=== PATIENT | male | born 1965 | race Caucasian/White ===

== ENCOUNTER 2016-06-23 17:36 | Emergency (ER) | payer BC ==
[~2016-06-23] VITALS: Ht 175.3 cm; Wt 128.1 kg
[~2016-06-23 17:36] MED LIST: AMOX500T PO; CELE10TA PO; IBUP800T23 PO; METF1000 PO; ULTR50TA5 PO
[2016-06-23 17:50] VITALS: BP 158/92; PULSE 86; RESP 18; TEMP 99.1; O2SAT 99
[2016-06-23] MEDS ORDERED: MULT1TAB85 PO (18:03)
[2016-06-23] MEDS ORDERED: ASPI81CH37 CHEW (18:03)
[2016-06-23] MEDS ORDERED: BUSP30TA PO (18:03)
[2016-06-23] MEDS ORDERED: SIMV80TA PO (18:03)
[2016-06-23] MEDS ORDERED: CLAR10CA3 PO (18:04)
--- NOTE | 2016-06-23 18:10 | PD ---
HPI Chief Complaint: Oral / Dental Pain or Problem Time Seen by Provider: 18:09 Travel History International Travel<30 days: No Contact w/Intl Traveler<30days: No Traveled to known affect area: No History of Present Illness HPI 50-year-old male with a history of diabetes presents to the emergency department for evaluation of dental pain. Patient states that he has multiple bad upper teeth that he is scheduled to have removed next week. States that he bit down on something yesterday and broke off another piece of one of his right upper teeth. States that since then he has had worsening pain and swelling on the right side of his face. States that the pain radiates to his right ear and right eye. He has a headache as well. He denies any fever, chills, nausea, vomiting, lightheadedness, dizziness, difficulty swallowing. States he has been taking ibuprofen for pain. States that he did take a tramadol left over from his visit in May earlier today with minimal improvement of symptoms. No other complaints. PFSH Past Medical History Depression: Yes High Cholesterol: Yes Diabetes: Yes (Type 2) Patient Takes Glucophage: Yes Tetanus Vaccination: > 5 Years Influenza Vaccination: No Past Surgical History Appendectomy: Yes Tonsillectomy: Yes Social History Alcohol Use: No Tobacco Use: Yes (1 PPD) Substance Use: No Allergies-Medications (Allergen,Severity, Reaction): Coded Allergies: Tylenol #3 (Verified Adverse Reaction, Severe, "Makes me crazy", 06/23/16) Vicodin (Verified Adverse Reaction, Severe, "Makes me feel crazy", 06/23/16 ) Reported Meds & Prescriptions Reported Meds & Active Scripts Active Tramadol (Tramadol HCl) 50 Mg Tab 50 Mg PO Q6H PRN Ibuprofen 800 Mg Tab 800 Mg PO Q8H PRN 10 Days Clindamycin (Clindamycin HCl) 150 Mg Cap 300 Mg PO Q6H 10 Days Reported Claritin (Loratadine) 10 Mg Cap 10 Mg PO DAILY Multivitamin Men (Multiple Vitamins W/ Minerals) 1 Tab Tab 1 Tab PO DAILY Aspirin Low Dose (Aspirin) 81 Mg Chew 81 Mg CHEW DAILY Simvastatin 80 Mg Tab 80 Mg PO DAILY Buspirone (Buspirone HCl) 30 Mg Tab 40 Mg PO TID Celexa (Citalopram Hydrobromide) 10 Mg Tab 10 Mg PO BID Metformin (Metformin HCl) 1,000 Mg Tab 1,000 Mg PO BIDPC With meals Review of Systems Except as stated in HPI: all other systems reviewed are Neg Physical Exam Narrative GENERAL: Well-nourished and well-developed pleasant patient in no acute distress who is nontoxic appearing. SKIN: Warm and dry without any obvious rashes or lesions. HEAD: Normocephalic and atraumatic. Mild swelling of right maxillary region with tenderness to palpation. EYES: No injection, drainage, or hyphema noted. PERRLA. EOMI. ENT: No nasal drainage noted. Oropharynx is clear and the TMs are normal with good landmarks. DENTAL: Poor dentition throughout. Multiple dental caries and upper teeth. There is swelling and erythema of the right upper gingiva. No discharge or drainage. NECK: Supple and the trachea is midline. No lymphadenopathy is noted throughout the cervical chains. CARDIOVASCULAR: Regular rate and rhythm. RESPIRATORY: Breath sounds are equal bilaterally with no accessory muscle use, wheezing, rhonchi, or crackles. NEUROLOGICAL: Awake, alert, and oriented. Normal speech and gait. Cranial nerves are grossly intact. Data Data Last Documented VS Vital Signs Date Time Temp Pulse Resp B/P Pulse Ox O2 Delivery O2 Flow Rate FiO2 06/23/16 17:50 99.1 86 18 158/92 99 Orders Ketorolac Inj (Toradol Inj) (06/23/16 18:15) Blood Glucose (06/23/16 18:09) MDM Medical Decision Making Medical Screen Exam Complete: Yes Emergency Medical Condition: Yes Differential Diagnosis Dental infection versus dental abscess versus dental caries Narrative Course 50-year-old male presents to the emergency department for evaluation of right upper dental pain and facial swelling. Patient is afebrile, vital signs are stable. On physical examination he has multiple dental caries and some mild right-sided facial swelling. He is scheduled to see the dentist tomorrow for preop visit. Patient is given Toradol 60 mg IM. He'll be discharged with clindamycin, tramadol and ibuprofen. He is instructed to follow-up with his dentist as scheduled. Patient verbalizes understanding and agreement with treatment plan. Diagnosis Primary Impression: Dental abscess Referrals: Dentist Patient Instructions: Dental Abscess (ED), General Instructions Additional Instructions: Take medications as prescribed with food and a full glass of water. Do not take Tramadol with alcohol or while driving. Follow-up with your Dentist. Return to the ED for any acute worsening of symptoms. Med/Other Pt SpecificInfo: Prescription(s) given Scripts Tramadol 50 Mg Tab50 Mg PO Q6H PRN (PAIN GREATER THAN 6) #20 TAB Ref 0 Prov:Javy George MD 06/23/16 Ibuprofen 800 Mg [id number] Mg PO Q8H PRN (PAIN SCALE 1 TO 10) 10 Days Ref 0 Prov:Javy George MD 06/23/16 Clindamycin 150 Mg [id number] Mg PO Q6H 10 Days Ref 0 Prov:Javy George MD 06/23/16 Disposition: 01 DISCHARGE HOME Condition: Stable Katy Barrera Jun 23, 2016 18:10
[2016-06-23] MEDS ORDERED: KETOROLAC TROMETHAMINE 60 MG/2 ML (IM) VIAL IM ONE (18:15)
[2016-06-23] MEDS ORDERED: TRAM50TA PO (18:21)
[2016-06-23] MEDS ORDERED: CLIN1CAP5 PO (18:21)
[2016-06-23] MEDS ORDERED: IBUP800T23 PO (18:21)
== END 2016-06-23 18:30 | disposition home or self-care (01) ==
LOC: PHEFT 17:36
DX: K04.7 Periapical abscess without sinus (principal); E78.00 Pure hypercholesterolemia, unspecified; E11.9 Type 2 diabetes mellitus without complications; F17.210 Nicotine dependence, cigarettes, uncomplicated; R51 Headache
CPT/HCPCS: 96372; 99282; J1885

== ENCOUNTER 2016-09-26 16:40 | Emergency (ER) | payer BC ==
[~2016-09-26] VITALS: Ht 175.3 cm; Wt 123.0 kg
[~2016-09-26 16:40] MED LIST changes: -AMOX500T PO; +ASPI81CH37 CHEW; +BUSP30TA PO; +CLAR10CA3 PO; +CLIN1CAP5 PO; +MULT1TAB85 PO; +SIMV80TA PO; +TRAM50TA PO; -ULTR50TA5 PO
[2016-09-26 16:43] VITALS: BP 126/76; PULSE 74; RESP 16; TEMP 98.4; O2SAT 96
[2016-09-26] MEDS ORDERED: INSULIN HUMAN REGULAR 1,000 UNITS/10 ML VIAL SQ ONE (17:15)
[2016-09-26] MEDS ORDERED: SODIUM CHLOR 0.9% 1000 ML INJ 1,000 ML IV ONE ×2 (17:15)
[2016-09-26] MEDS ORDERED: CIPR-9 PO (17:29)
[2016-09-26 17:33] LABS: AUTOMATED NEUTROPHIL # 5.1 TH/MM3 (1.8-7.7); BASOPHIL # 0.1 TH/MM3 (0-0.2); BASOPHIL % 0.7 % (0.0-2.0); EOSINOPHIL # 0.2 TH/MM3 (0-0.4); EOSINOPHIL % 1.9 % (0.0-4.0); HEMATOCRIT 41.7 % (39.0-51.0); HEMO FLAGS DIFF FINAL; LYMPH % 27.2 % (9.0-44.0); LYMPHOCYTE # 2.2 TH/MM3 (1.0-4.8); MEAN CELL VOLUME 91.6 FL (80.0-100.0); MEAN CORPUSCULAR HEMOGLOBIN 31.3 PG (27.0-34.0); MEAN CORPUSCULAR HGB CONC 34.1 % (32.0-36.0); MONO % 4.7 % (0.0-8.0); NEUT % 65.5 % (16.0-70.0); PLATELET COUNT 168 TH/MM3 (150-450); RED BLOOD COUNT 4.55 MIL/MM3 (4.50-5.90)
[2016-09-26 17:35] LABS: BLOOD, URINE NEG (NEG); KETONE, URINE NEG (NEG); NITRITE,URINE NEG (NEG)
[2016-09-26 17:39] LABS: GLUCOSE,URINE 1000 OR GREATER mg/dL (NEG)
[2016-09-26 17:40] LABS: COMMENT (UR) CULT NOT INDICATED; CULTURE IF INDICATED CULT NOT INDICATED; METHOD OF COLLECTION CLEAN CATCH; RBC, URINE 0-3 /hpf (0-3); SQUAMOUS EPITHELIAL CELL URINE 0-5 /hpf (0-5); URINE COLOR YELLOW (YELLW/STRAW)
[2016-09-26 17:43] LABS: POTASSIUM 4.5 MEQ/L (3.5-5.1)
[2016-09-26 17:45] VITALS: BP 120/59; PULSE 64; RESP 18; O2SAT 96
[2016-09-26 17:46] LABS: BICARBONATE 29.5 MEQ/L (21.0-32.0)
[2016-09-26 18:27] LABS: BETA-HYDROXYBUTYRATE 0.12 MMOL/L (0.00-0.39)
[2016-09-26] MEDS ORDERED: GLIP5TAB8 PO (18:29)
--- NOTE | 2016-09-26 18:45 | PD ---
HPI Chief Complaint: Diabetic Time Seen by Provider: 16:55 Travel History International Travel<30 days: No Contact w/Intl Traveler<30days: No Traveled to known affect area: No History of Present Illness HPI This 50-year-old male is complaining of high blood sugar. He has a history of diabetes for several years. He has been on metformin 1000 mg twice daily. Recently his blood sugars have been higher. He has not had any fever or chills. He stopped smoking 2 years ago and needed a lot of weight at that time. He has recently been trying to lose weight. He checked his sugar at home and it was over 500. PFSH Past Medical History Hx Anticoagulant Therapy: Yes (BABY ASA DAILY) Depression: Yes Cardiovascular Problems: Yes (HTN, CHOL) High Cholesterol: Yes Diabetes: Yes Patient Takes Glucophage: Yes Diminished Hearing: No Influenza Vaccination: No ?: Not Past Surgical History Appendectomy: Yes Tonsillectomy: Yes Social History Alcohol Use: No Tobacco Use: Yes (1 PPD) Substance Use: No Allergies-Medications (Allergen,Severity, Reaction): Coded Allergies: Tylenol #3 (Verified Adverse Reaction, Severe, "Makes me crazy", 09/26/16) Vicodin (Verified Adverse Reaction, Severe, "Makes me feel crazy", 09/26/16 ) Reported Meds & Prescriptions Reported Meds & Active Scripts Active Glipizide 5 Mg Tab 5 Mg PO DAILY Take 30 minutes before a meal Reported Cipro (Ciprofloxacin HCl) 500 Mg Tab 500 Mg PO BID Claritin (Loratadine) 10 Mg Cap 10 Mg PO DAILY Multivitamin Men (Multiple Vitamins W/ Minerals) 1 Tab Tab 1 Tab PO DAILY Aspirin Low Dose (Aspirin) 81 Mg Chew 81 Mg CHEW DAILY Simvastatin 80 Mg Tab 80 Mg PO HS Buspirone (Buspirone HCl) 30 Mg Tab 40 Mg PO TID Celexa (Citalopram Hydrobromide) 10 Mg Tab 5 Mg PO BID Metformin (Metformin HCl) 1,000 Mg Tab 1,000 Mg PO BIDPC With meals Review of Systems General / Constitutional: No: Fever, Chills Eyes: Positive: Blurred Vision HENT: No: Headaches, Vertigo Cardiovascular: No: Palpitations Respiratory: No: Cough, Shortness of Breath Gastrointestinal: No: Vomiting, Diarrhea Genitourinary: Positive: Frequency Musculoskeletal: No: Myalgias Skin: No Rash Psychiatric: Positive: Anxiety Endocrine: No: Heat Intolerance Physical Exam Narrative GENERAL: Well-developed male SKIN: Focused skin assessment warm/dry. HEAD: Atraumatic. Normocephalic. EYES: Pupils equal and round. No scleral icterus. No injection or drainage. ENT: No nasal bleeding or discharge. Mucous membranes pink and moist. NECK: Trachea midline. No JVD. CARDIOVASCULAR: Regular rate and rhythm. No murmur appreciated. RESPIRATORY: No accessory muscle use. Clear to auscultation. Breath sounds equal bilaterally. GASTROINTESTINAL: Abdomen soft, non-tender, nondistended. Hepatic and splenic margins not palpable. MUSCULOSKELETAL: No obvious deformities. No clubbing. No cyanosis. No edema. NEUROLOGICAL: Awake and alert. No obvious cranial nerve deficits. Motor grossly within normal limits. Normal speech. PSYCHIATRIC: Appropriate mood and affect; insight and judgment normal. Data Data Last Documented VS Vital Signs Date Time Temp Pulse Resp B/P Pulse Ox O2 Delivery O2 Flow Rate FiO2 09/26/16 17:45 64 18 120/59 96 Room Air 09/26/16 16:43 98.4 Orders Complete Blood Count With Diff (09/26/16 17:04) Basic Metabolic Panel (Bmp) (09/26/16 17:04) Urinalysis - C+S If Indicated (09/26/16 17:04) Beta Hydroxybutyrate (Acetone) (09/26/16 17:04) Sodium Chlor 0.9% 1000 Ml Inj (Ns 1000 M (09/26/16 17:15) Sodium Chlor 0.9% 1000 Ml Inj (Ns 1000 M (09/26/16 17:15) Insulin Human Regular Inj (Novolin R Inj (09/26/16 17:15) Labs Laboratory Tests Test 09/26/16 09/26/16 16:50 17:25 Urine Collection Type CLEAN CATCH Urine Color YELLOW Urine Turbidity CLEAR Urine pH 6.0 Urine Specific [place] 1.033 Urine Protein NEG mg/dL Urine Glucose (UA) 1000 OR GREATER mg/dL Urine Ketones NEG mg/dL Urine Occult Blood NEG Urine Nitrite NEG Urine Bilirubin NEG Urine Leukocyte Esterase NEG Urine RBC 0-3 /hpf Urine Squamous Epithelial 0-5 /hpf Cells Microscopic Urinalysis Comment CULT NOT INDICATED Urine Collection Time 16:50 White Blood Count 8.0 TH/MM3 Red Blood Count 4.55 MIL/MM3 Hemoglobin 14.2 GM/DL Hematocrit 41.7 % Mean Corpuscular Volume 91.6 FL Mean Corpuscular Hemoglobin 31.3 PG Mean Corpuscular Hemoglobin 34.1 % Concent Red Cell Distribution Width 13.0 % Platelet Count 168 TH/MM3 Mean Platelet Volume 9.0 FL Neutrophils (%) (Auto) 65.5 % Lymphocytes (%) (Auto) 27.2 % Monocytes (%) (Auto) 4.7 % Eosinophils (%) (Auto) 1.9 % Basophils (%) (Auto) 0.7 % Neutrophils # (Auto) 5.1 TH/MM3 Lymphocytes # (Auto) 2.2 TH/MM3 Monocytes # (Auto) 0.4 TH/MM3 Eosinophils # (Auto) 0.2 TH/MM3 Basophils # (Auto) 0.1 TH/MM3 CBC Comment DIFF FINAL Differential Comment Sodium Level 134 MEQ/L Potassium Level 4.5 MEQ/L Chloride Level 98 MEQ/L Carbon Dioxide Level 29.5 MEQ/L Anion Gap 7 MEQ/L Blood Urea Nitrogen 13 MG/DL Creatinine 1.20 MG/DL Estimat Glomerular Filtration 64 ML/MIN Rate Random Glucose 471 MG/DL Calcium Level 9.6 MG/DL B-Hydroxybutyrate 0.12 MMOL/L [facility] Medical Decision Making Medical Screen Exam Complete: Yes Emergency Medical Condition: Yes Medical Record Reviewed: Yes Differential Diagnosis Differential includes hyperglycemia, DKA Narrative Course . Hydroxybutyrate negative. Blood sugar is 470. He is given some fluids and insulin. He needs medication in addition to the metformin. I will start him on glipizide 5 mg daily. He is to follow-up with his own medical doctor Diagnosis Primary Impression: Hyperglycemia Scripts Glipizide 5 Mg Tab5 Mg PO DAILY #30 TAB Ref 0 Take 30 minutes before a meal Prov:Jules Ponce MD 09/26/16 Disposition: 01 DISCHARGE HOME Condition: Stable Jules Ponce MD Sep 26, 2016 18:45
[2016-09-26 19:00] VITALS: BP 108/50; PULSE 68; RESP 18; TEMP 98.9; O2SAT 96
== END 2016-09-26 19:32 | disposition home or self-care (01) ==
LOC: PHED 16:40
DX: E11.65 Type 2 diabetes mellitus with hyperglycemia (principal); I10 Essential (primary) hypertension; E78.00 Pure hypercholesterolemia, unspecified; F17.200 Nicotine dependence, unspecified, uncomplicated; Z79.82 Long term (current) use of aspirin; Z79.84 Long term (current) use of oral hypoglycemic drugs; Z86.59 Personal history of other mental and behavioral disorders; Z86.79 Personal history of other diseases of the circulatory system
CPT/HCPCS: 80048; 81001; 82010; 85025; 96360; 96372; 99283; J1815; J7030